=== PATIENT | male | born 1965 | race Caucasian/White ===

== ENCOUNTER → 2016-12-15 | Outpatient (CLI) | payer MEDICARE ==
[~2016-12-15] MED LIST: AUGMENTIN PO; LORTAB 5/500 TA1 TA1 PO; PEN-VEE K PO
--- NOTE | ~2016-12-15 | CR133 ---
[facility] A Service of [facility] RADIOLOGY TEXT RESULTS PATIENT: ANJUM MORGAN II LOCATION: [facility] : 61 UNIT #: [id number] AGE: [address]: PARI RIVAS APRN SEX: M ORDER DR: [id number] [facility] [address] [place], [place] [address] [id number] O MR#: [id number] #: [id number] NAME: ANJUM MORGAN II : 1965 SEX: M STUDY DATE/TIME: 12/15/2016 14:59 UNIT: [facility] ROOM: STUDY DESCRIPTION: CR Forearm 2 View Rt Attending Physician: Oneal Rivas M.D. Referring Physician: Oneal Rivas M.D. Ordering Physician: Oneal Rivas M.D. Primary Care Physician: Parth Hawkins M.D. MEDICAL IMAGING REPORT This report is preliminary unless electronic signature is present EXAM Two-view right forearm HISTORY 51-year-old male fell last week at work, pain, limited range of motion extending from elbow to wrist. FINDINGS Two views of the right forearm demonstrates subtle irregularity of the cortical surface of the radius along the lateral aspect. No distinct fracture line is identified. This could represent the sequela of an old injury. Correlate with targeted physical exam and if clinically warranted followup radiographs may be of benefit with imaging of the right elbow and radial head. Wrist and elbow joint otherwise unremarkable. The remainder of the radius and ulna appear normal. The soft tissues unremarkable. IMPRESSION No definitive fracture. Subtle irregularity of the cortical surface of the radial head could represent the sequela of old trauma. Again a discrete fracture line is not seen. If clinically warranted, followup imaging of the elbow may be of benefit. Dictated by... Cheryl Jurado M.D. THIS IS AN ELECTRONICALLY VERIFIED REPORT Cheryl Jurado M.D. at 12/16/2016 4:47 PM MARIE/ewa TD: 12/16/2016 10:57 JOB #: [id number] [facility] A Service of [facility] & [facility] RADIOLOGY TEXT RESULTS PATIENT: ANJUM MORGAN II LOCATION: [facility] #: [id number] : 61 UNIT #: [id number] AGE: [address]: PARI RIVAS APRN SEX: M ORDER DR: MEDICAL IMAGING REPORT Page 1 of 1 COPY
== END | disposition home or self-care (01) ==
LOC: CRAD 14:30
DX: M79.601 Pain in right arm (principal); M25.60 Stiffness of unspecified joint, not elsewhere classified
CPT/HCPCS: 73090